=== PATIENT | female | born 1995 | race Caucasian/White ===

== ENCOUNTER 2019-06-05 22:51 | Emergency (ER) | payer OTHER ==
[~2019-06-05] VITALS: Ht 172.7 cm; Wt 70.3 kg
--- NOTE | 2019-06-05 23:12 | NUR ---
Dr. Quiroga at bedside for MSE
[2019-06-05 23:27] LABS: BASOPHILS % (AUTO) 0.3 % (0.0-2.0); EOSINOPHILS # (AUTO) 0.1 K/uL (0.0-0.7); EOSINOPHILS % (AUTO) 1.1 % (0.0-7.0); HEMATOCRIT 40.5 % (31.2-41.9); HEMOGLOBIN 13.7 g/dL (10.9-14.3); LYMPHOCYTES # (AUTO) 2.6 K/uL (20.0-40.0); LYMPHOCYTES % (AUTO) 26.5 % (20.5-51.5); MEAN CORPUSCULAR HGB CONC 34 g/dL (32.3-35.6); MONOCYTES # (AUTO) 0.6 K/uL (2.0-10.0); MONOCYTES % (AUTO) 6.1 % (0.0-11.0); NEUTROPHILS # (AUTO) 6.5 K/uL (1.8-8.9); PLATELET COUNT (AUTO) 270 K/uL (179-408); WHITE BLOOD COUNT (AUTO) 9.8 K/uL (3.8-11.8)
[2019-06-05 23:30] LABS: *URINE HCG, QUAL NEGATIVE (NEGATIVE)
[2019-06-06] LABS: CREATININE 0.7 mg/dL (0.6-1.3); POTASSIUM 3.4 mmol/L (3.5-5.1)
[2019-06-06 00:06] LABS: BILIRUBIN,TOTAL 0.3 mg/dL (0.2-1.0); TOTAL PROTEIN, SERUM 7.1 g/dL (6.4-8.2)
[2019-06-06 01:20] VITALS: BP 122/73
--- NOTE | 2019-06-06 01:20 | NUR ---
Patient discharged to home in stable conditon. Written and verbal after care instructions given. Patient verbalizes understanding of instructions. patient ambulating with steady gait
== END 2019-06-06 01:02 | disposition home or self-care (01) ==
LOC: ER 22:51
DX: J20.9 Acute bronchitis, unspecified (principal)
CPT/HCPCS: 36415; 70030-TC; 71046; 84703; 85025; 93005; A4663